=== PATIENT | female | born 1975 | race Caucasian/White ===

== ENCOUNTER 2022-02-23 09:00 | Outpatient (RCR) | payer MEDICAID, SELFPAY ==
--- OUTSIDE RECORDS SUMMARY | 2022-02-10 14:48 | XMS_ITS | Continuity of Care Document ---
:1975 Author Care Team Providers Name Role Phone PCP, UNASSIGNED Primary Care Physician Unavailable LIYA Goodwin Attending Physician Allergies, Adverse Reactions, Alerts No known allergies Social History Smoking Status Unknown if ever smoked Additional Data Assigned Sex Female Problems Active Problems Medical Problem Onset Date Status Cervical cancer, FIGO stage IIIA 2020 Active Medications Medication Status Dose Units Route Directions Qty Days Start End Ins tructions Date Date Dexamethasone Active 8 MG PO Daily X 3 06 January S TART DAY Days , AFTER CHEMO 2021 2:41pm Ferrous Active 325 MG PO Daily 100 Sulfate Loperamide Hcl Active 2 MG PO as needed (Imodium) 2 Mg CAP Lorazepam Active 0.5-1 MG PO Every 4 30 December Hours as , needed 2021 2:42pm Naproxen Active 220 MG PO Twice A Day 08 February not currently Sodium (Aleve) , using as of 220 Mg TAB 202102/07/22 12:11p m Omeprazole Active 20 MG PO Daily January 21, 2022 2:41pm Ondansetron Active 8 MG PO Every 8 24 January Hcl Hours as , needed 2021 2:41pm Prochlorperazi Active 10 MG PO Every 4-6 24 January PRN ne Maleate Hours as , Nausea /vomiti needed 2021 ng 2:41pm Naproxen Discontinu 220 MG PO Twice A Day January Sodium (Aleve) ed , 220 Mg TAB 2021 12:11 pm Relevant Diagnostic Tests and/or Laboratory Data Laboratory Results Test Date/Time Result Interpretation Reference Result Comment Performing Range Site White Blood February 07, 8.02 5.00-10.00 [facility] Count 2021 [address] [facility] 8:54am [facility] [address] Red Blood Count February 07, 4.18 3.90-5.03 [facility] 2021 [address] [facility] 8:54am [place] [address] Hemoglobin February 07, 13.4 12.0-15.5 [facility] 2021 1999 [facility] 8:54am [place] [address] Hematocrit February 07, 38.9 34.9-44.5 [facility] 2021 1999 [facility] 8:54am [place] [address] Mean February 07, 93 82-98 [facility] Corpuscular 2021 1999 [facility] Volume 8:54am [place] [address] Mean February 07, 32 27-34 [facility] Corpuscular 2021 1999 [facility] Hemoglobin 8:54am [facility] [address] Mean February 07, 34 32-36 [facility] Corpuscular 2021 1999 [facility] Hemoglobin 8:54am [facility] [address] Concent Platelet Count February 07, 141 150-450 [facility] 2021 [address] [facility] 8:54am [place] [address] RDW Coefficient February 07, 12.3 11.5-15.3 [facility] of Variation 2021 1999 [facility] 8:54am [place] [address] Neutrophils (%) February 07, 87.4 50.0-70.0 [facility] (Auto) 2021 1999 [facility] 8:54am [place] [address] Lymphocytes (%) February 07, 4.0 25.0-45.0 [facility] (Auto) 2021 [address] [facility] 8:54am [place] [address] Monocytes (%) February 07, 6.0 0.00-11.0 [facility] (Auto) 2021 [address] [facility] 8:54am [place] [address] Eosinophils (%) February 07, 2.0 0.0-7.0 [facility] (Auto) 2021 [address] [facility] 8:54am [place] [address] Basophils (%) February 07, 0.0 0.0-3.0 [facility] (Auto) 2021 [address] [facility] 8:54am [place] [address] Immature February 07, 0.6 [facility] Granulocyte % 2021 1999 [facility] (Auto) 8:54am [place] [address] Neutrophils # February 07, 7.01 1.70-7.00 [facility] (Auto) 2021 1999 [facility] 8:54am [facility] [address] Lymphocytes # February 07, 0.32 0.90-2.90 [facility] (Auto) 2021 [address] [facility] 8:54am [place] [address] Monocytes # February 07, 0.48 0.30-0.90 [facility] (Auto) 2021 [address] [facility] 8:54am [facility] [address] Eosinophils # February 07, 0.16 0.00-0.50 [facility] (Auto) 2021 [address] [facility] 8:54am [facility] [address] Basophils # February 07, 0.00 0.00-0.20 [facility] (Auto) 2021 [address] [facility] 8:54am [facility] [address] Immature February 07, 0.05 [facility] Granulocyte # 2021 1999 [facility] ([facility]) 8:54am [facility] [address] Random Glucose February 07, 88 60-115 [facility] 2021 [address] [facility] 8:54am [facility] [address] Blood Urea February 07, 16 5-24 [facility] Nitrogen 2021 [address] [facility] 8:54am [facility] [address] Creatinine February 07, 1.0 0.5-1.5 [facility] 2021 [address] [facility] 8:54am [facility] [address] Estimated February 07, 55.0230 [facility] Creatinine 2021 5 1999 [facility] Clearance 8:54am [facility] [address] Sodium Level February 07, 133 135-149 [facility] 2021 [address] [facility] 8:54am [facility] [address] Potassium Level February 07, 4.2 3.6-5.1 [facility] 2021 [address] [facility] 8:54am [facility] [address] Chloride Level February 07, 94 96-114 [facility] 2021 [address] [facility] 8:54am [facility] [address] Carbon Dioxide February 07, 34 20-32 [facility] Level 2021 [address] [facility] 8:54am [facility] [address] Calcium Level February 07, 8.5 8.4-10.6 [facility] 2021 [address] [facility] 8:54am [facility] [address] Magnesium Level February 07, 1.7 1.5-2.6 [facility] 2021 [address] [facility] 8:54am [facility] [address] Total Protein February 07, 6.0 6.0-8.[address] [facility] 2021 Eltrombopag, a 1999 [facility] 8:54am bone [place] [address] stimulant used to treat thrombocytopenia and aplastic anemia, interferes with this measurement of total protein. A 5% bias has been observed. Albumin February 07, 3.5 3.3-5.0 [facility] 2021 [address] [facility] 8:54am [facility] [address] Total Bilirubin February 07, 0.4 0.1-1.5 [facility] 2021 [address] [facility] 8:54am [facility] [address] Aspartate Amino February 07, 12-35 [facility] Transf 2021 1999 [facility] (AST/SGOT) 8:54am [facility] [place] [address] Alanine February 07 4-35 [facility] Aminotransferas 2021 1999 [facility] e (ALT/SGPT) 8:54am [place] [address] Alkaline February 07, 40-150 [facility] Phosphatase 2021 [address] [facility] 8:54am [facility] [address] Insurance Providers Guarantor Daphne Lennon Address [address] [facility] [address] Contact Info. Home Phone: Payer Policy Id Coverage Id Subscriber's Subscriber Id Effective E xpiration Name Date Date Medicaid [id number] Daphne Lennon Encounters Encounter Location(s) Arrival/Admit Date Discharge/Depart Date Provider(s) Registered [place] February 09, 2022 Usha Goodwin [facility] 6:56am [facility] TREATMENT TECHNICIAN-C Recent Diagnosis Onset Date Cervical cancer, FIGO stage IIIA Assessments Diagnosis Onset Date Resolution Status Cervical cancer, FIGO Active stage IIIA
[2022-02-22 10:04] VITALS: BP 107/76; PULSE 94; RESP 16; TEMP 36.2; O2SAT 99
[2022-02-22] MEDS: dexAMETHasone 10 MG in 0.9 % SODIUM CHLORIDE 100 ml 100 ML 404 MG IVPB (11:54)
[2022-02-22] MEDS: PALONOSETRON 0.25 MG/5 ML inj IV (11:59)
[2022-02-22] MEDS: FOSAPREPITANT 150 MG inj 150 MG in 0.9 % SODIUM CHLORIDE 250 ml 250 ML 510 MG IVPB (12:35)
--- NOTE | 2022-02-22 15:28 | ONC.NURNOTE ---
Patients Mag is 1.3. per Agnes BEARD Normal Saline !L with @ gm Mag over 2 hrs today and tomorrow. Pt states having difficult time taking Mag on a empty stomach . states takes it about every other day. Enc to set a alarm to take it a hour before getting up for a meal in the am. stress the importance of taking it.
[2022-02-23 08:45] VITALS: BP 131/82; RESP 16; TEMP 36.2; O2SAT 100
--- NOTE | 2022-02-23 09:09 | ONC.NURNOTE ---
states loose stool x2 this am. Lomotil with good results. enc pt to call if increase loose stools. pt states set alarm for 5am and did take her Mag. this am. reviewed s/s dehydration.
== END 2022-02-24 23:59 | disposition home or self-care (01) ==
LOC: CCIC 09:00
PROVIDERS: Visit Provider Internal Medicine Hematology & Oncology
DX: C53.9 Malignant neoplasm of cervix uteri, unspecified (principal)
CPT/HCPCS: 96365; 96366; 96376; 96413; J1100; J1453; J2469; J3475; J7030; J7050; J7120; J9060

== ENCOUNTER 2022-03-25 09:15 | Outpatient (RCR) | payer MEDICAID, SELFPAY ==
[2022-03-01 10:32] VITALS: BP 117/69; PULSE 84; RESP 16; TEMP 36.3; O2SAT 99
[2022-03-01 10:36] LABS: Eosinophils Percent Auto 0.5 % (0.0-7.0); Hematocrit 32.8 % (33.0-51.0); Hemoglobin* 11.6 gm/dL (12.0-16.0); Immature Granulocytes Abs Auto 0.22 K/uL (0.00-0.30); Lymphocytes Percent Auto 5.9 % (20-44); Mean Corpuscular HGB Conc 35 gm/dL (32-36); Mean Corpuscular Hemoglobin 31 pg (26-34); Mean Corpuscular Volume 89 fL (80-100); Monocytes Percent Auto 12.2 % (0.0-11.0); Neutrophils Percent Auto 69.7 % (42.0-72.0); Platelet Count* 104 K/uL (140-440); RDW Coefficient of Variation % 11.8 % (11.5-15.5)
[2022-03-01 10:46] LABS: White Blood Count* 1.88 K/uL (4.50-11.00)
[2022-03-01 10:47] LABS: Slide Review Reflex Yes
[2022-03-01 11:00] LABS: Albumin* 3.8 g/dL (3.3-5.0); Chloride* 97 mmol/L (96-114); Potassium* 3.9 mmol/L (3.6-5.1); Sodium* 130 mmol/L (135-149)
[2022-03-01 11:02] LABS: Bilirubin Total* 0.4 mg/dL (0.1-1.5); Creatinine* 0.7 mg/dL (0.5-1.5); Estimated Glomerular Filt Rate 107.28
[2022-03-01 11:03] LABS: Alanine Aminotransferase* 29 U/L (4-35); Alkaline Phosphatase* 82 U/L (40-150); Aspartate Amino Transferase* 26 U/L (12-35); Blood Urea Nitrogen* 12 mg/dL (5-24); Calcium* 8.3 mg/dL (8.4-10.6); Carbon Dioxide* 32 mmol/L (20-32); Glucose* 104 mg/dL (60-115); Total Protein* 6.1 g/dL (6.0-8.3)
[2022-03-01 11:04] LABS: Magnesium* 1.1 mg/dL (1.5-2.6)
[2022-03-01] MEDS: dexAMETHasone 10 MG in 0.9 % SODIUM CHLORIDE 100 ml 100 ML 400 MG IVPB (13:26)
[2022-03-01] MEDS: PALONOSETRON 0.25 MG/5 ML inj IV (13:26)
[2022-03-01 14:58] LABS: Slide Review Acceptable Review (Acceptable)
[2022-03-02 09:07] VITALS: BP 109/81; PULSE 76; RESP 16; TEMP 36.1; O2SAT 98
[2022-03-02 09:27] LABS: Magnesium* 1.5 mg/dL (1.5-2.6)
--- NOTE | 2022-03-02 10:09 | PC.NURSE ---
Patient here for a magnesium blood draw and fluids with magnesium added to it. Mag was 1.5 today. Patient had taken 2 magnesium tablets yesterday and had some magnesium added to her fluids as well. Patient ended up having 3 bouts of diarrhea last evening. This was resolved with some Imodium. CLINICAL REVIEWER notified of this. Will advise patient to only take 1 tablet of magnesium daily and to return every Monday for 4 weeks to check labs and replace as needed. Patient will then see CLINICAL REVIEWER in 4 weeks. Order for PRN fluids was placed and patient verbally understood this plan.
[2022-03-02] MEDS: SODIUM CHLORIDE 0.9 % (FLUSH) 10 ML SYRINGE IVF (15:56)
--- NOTE | 2022-03-03 16:46 | ONC.NURNOTE ---
Authorization: User: Ban Kenney Avisbrayanmin Date: 01/21/22 10:35 Type: Eligibility Determination Note... Request received from [facility] for prior authorization of Cisplatin [id number], Aloxi [id number] and Emend [id number]. Patient carries [place] Medicaid as primary insurance. Per [facility] Fee Schedule no prior authorization is required for Cisplatin, Aloxi and Emend. Services are based on medical necessity.
[2022-03-08 09:49] LABS: Eosinophils Percent Auto 0.3 % (0.0-7.0); Hematocrit 31.2 % (33.0-51.0); Hemoglobin* 11.1 gm/dL (12.0-16.0); Immature Granulocytes Abs Auto 0.29 K/uL (0.00-0.30); Lymphocytes Percent Auto 2.6 % (20-44); Mean Corpuscular HGB Conc 36 gm/dL (32-36); Mean Corpuscular Hemoglobin 31 pg (26-34); Mean Corpuscular Volume 87 fL (80-100); Monocytes Percent Auto 8.7 % (0.0-11.0); Neutrophils Percent Auto 80.8 % (42.0-72.0); Platelet Count* 82 K/uL (140-440); RDW Coefficient of Variation % 12.1 % (11.5-15.5); Red Blood Count 3.57 m/uL (4.00-5.20)
[2022-03-08 09:55] LABS: Slide Review Reflex No
[2022-03-08 10:15] LABS: Chloride* 94 mmol/L (96-114)
[2022-03-08 10:16] LABS: Potassium* 3.1 mmol/L (3.6-5.1); Sodium* 129 mmol/L (135-149)
[2022-03-08 10:18] LABS: Creatinine* 0.8 mg/dL (0.5-1.5); Est. Creatinine Clearance* 68.76
[2022-03-08 10:19] LABS: Blood Urea Nitrogen* 11 mg/dL (5-24); Calcium* 8.3 mg/dL (8.4-10.6); Carbon Dioxide* 25 mmol/L (20-32); Glucose* 149 mg/dL (60-115)
--- NOTE | 2022-03-08 16:50 | ONC.NURNOTE ---
Called Patient at 1315 and left a message for her to call us re: her low labs. and that she needs to come in today for fluid and electrolytes.. after no call back called her at 1630. states unable to come in till 1500 tomorrow. consulted [facility]. Pt enc to come in this evening DIO. pt states no ride till 7-8pm. Pt states will come in when hubby home. instructed to go to med surg. House sup aware and Charge nurse aware. and ok. pt instructed to come in at ER entrance. ER notified.
[2022-03-08 17:46] VITALS: BP 112/77; PULSE 92; RESP 16; TEMP 36.7; O2SAT 97
--- NOTE | 2022-03-08 21:12 | PC.NURSE ---
Infusion complete. IV dc'd. Pt discharged.
--- NOTE | 2022-03-09 09:56 | ONC.NURNOTE ---
CALLED [facility] [phone] TO SEE IF THEY WOULD DO A BMP, MAG TODAY WHILE PT IS THERE.
--- NOTE | 2022-03-09 15:58 | ONC.NURNOTE ---
message left with pt phone asking her to call us and be seen 03/10 for asst and bmp. mag.
[2022-03-10 08:34] VITALS: BP 113/80; PULSE 100; RESP 16; TEMP 36.4; O2SAT 97
[2022-03-10 09:27] LABS: Chloride* 96 mmol/L (96-114)
[2022-03-10 09:28] LABS: Potassium* 3.4 mmol/L (3.6-5.1); Sodium* 128 mmol/L (135-149)
[2022-03-10 09:30] LABS: Creatinine* 0.7 mg/dL (0.5-1.5); Est. Creatinine Clearance* 78.58; Estimated Glomerular Filt Rate 107.28
[2022-03-10 09:31] LABS: Blood Urea Nitrogen* 8 mg/dL (5-24); Calcium* 8.8 mg/dL (8.4-10.6); Carbon Dioxide* 27 mmol/L (20-32); Glucose* 126 mg/dL (60-115); Magnesium* 1.2 mg/dL (1.5-2.6)
--- NOTE | 2022-03-10 14:30 | ONC.NURNOTE ---
Addendum entered by Lilly Rabago RN 03/10/22 14:51: Reviewed with Agnes Marlow APRN. Gave 4 gm MgSO4/20mEq KCl in 1 L NS in addition to 1L NS that infused while waiting for lab results. Pt unable to come back for f/u until next ; scheduled pt for labs Mon sussy 03/14 in hospital lab and infusion Tues 0900 03/15. Nsg to review 03/15 am with Agnes Marlow APRN. Original Note: Pt here today for lab recheck and IVF. VS orthostatic; she denies dizziness or increased fatigue. She has been at [facility] for brachytherapy yesterday, tomorrow and next Mon. Na 128, K 3.4, Mg 1.2. She is taking 400mg Mg Oxide daily and 10 meQ Kcl daily. See addendum.
[2022-03-14 15:00] VITALS: BP 124/72; PULSE 127; RESP 14; TEMP 36.1; O2SAT 100
[2022-03-14 15:05] VITALS: BP 105/65; PULSE 146
[2022-03-14 15:16] LABS: Albumin* 3.9 g/dL (3.3-5.0); Chloride* 98 mmol/L (96-114)
[2022-03-14 15:17] LABS: Potassium* 4.5 mmol/L (3.6-5.1); Sodium* 133 mmol/L (135-149)
[2022-03-14] MEDS: SODIUM CHLORIDE 0.9 % (FLUSH) 10 ML SYRINGE IVF (15:17)
[2022-03-14 15:19] LABS: Alkaline Phosphatase* 69 U/L (40-150); Aspartate Amino Transferase* 29 U/L (12-35); Bilirubin Total* 0.6 mg/dL (0.1-1.5); Blood Urea Nitrogen* 11 mg/dL (5-24); Carbon Dioxide* 28 mmol/L (20-32); Creatinine* 0.7 mg/dL (0.5-1.5); Est. Creatinine Clearance* 78.58; Estimated Glomerular Filt Rate 107 ml/min; Total Protein* 6.4 g/dL (6.0-8.3)
[2022-03-14 15:20] LABS: Alanine Aminotransferase* 31 U/L (4-35); Calcium* 8.9 mg/dL (8.4-10.6); Glucose* 126 mg/dL (60-115)
--- NOTE | 2022-03-14 16:12 | ONC.NURNOTE ---
states cramps in feet and rt finger. occio. headache. chills. no fever. rachael liq. no appetite. states feels full. denies nausea emesis or constipation. awaiting mag. results. 1000cc NS cith 4gm mag currently running ove 2 hrs. orthostatics before infusion. sitting. 124/72-127. standing 105/65-146.
[2022-03-14 16:22] LABS: Magnesium* 1.2 mg/dL (1.5-2.6)
[2022-03-14 17:40] VITALS: BP 106/60; PULSE 104; RESP 16; TEMP 36.8; O2SAT 99
--- NOTE | 2022-03-14 18:28 | PC.NURSE ---
Patient to 243 and IV fluids infused without difficulty. SL discontinued with tip intact. Patient departed with all personal belongings.
[2022-03-15 13:33] LABS: Chloride* 100 mmol/L (96-114); Sodium* 132 mmol/L (135-149)
[2022-03-15 13:36] LABS: Carbon Dioxide* 27 mmol/L (20-32); Creatinine* 0.7 mg/dL (0.5-1.5); Est. Creatinine Clearance* 78.58; Estimated Glomerular Filt Rate 107 ml/min
[2022-03-15 13:37] LABS: Blood Urea Nitrogen* 9 mg/dL (5-24); Calcium* 8.6 mg/dL (8.4-10.6); Glucose* 103 mg/dL (60-115); Magnesium* 1.8 mg/dL (1.5-2.6)
[2022-03-15] MEDS: SODIUM CHLORIDE 0.9 % (FLUSH) 10 ML SYRINGE IVF (14:00)
[2022-03-15 15:16] VITALS: BP 115/77; BP 117/76; PULSE 91; PULSE 94; RESP 16; TEMP 37.1; O2SAT 100
--- NOTE | 2022-03-15 16:01 | ONC.NURNOTE ---
Patient to come back for fluids prior to the weekend. She wants to look at her schedule for Monday. She will call the office with what time she can be here on Monday for fluids. Per GEOMETRY TUTOR, no labs needed.
[2022-03-18 10:09] VITALS: BP 116/73; PULSE 106; RESP 16; TEMP 36.8; O2SAT 97
[2022-03-18 10:20] LABS: Chloride* 104 mmol/L (96-114); Sodium* 134 mmol/L (135-149)
[2022-03-18 10:21] LABS: Potassium* 4.1 mmol/L (3.6-5.1)
[2022-03-18 10:23] LABS: Creatinine* 0.8 mg/dL (0.5-1.5); Est. Creatinine Clearance* 68.76; Estimated Glomerular Filt Rate 91 ml/min
[2022-03-18 10:24] LABS: Blood Urea Nitrogen* 6 mg/dL (5-24); Calcium* 8.9 mg/dL (8.4-10.6); Carbon Dioxide* 25 mmol/L (20-32); Glucose* 101 mg/dL (60-115); Magnesium* 1.6 mg/dL (1.5-2.6)
[2022-03-22 09:21] VITALS: BP 121/73; PULSE 108; RESP 16; TEMP 36.3; O2SAT 99
[2022-03-22 09:23] VITALS: BP 109/74; PULSE 112; RESP 16; O2SAT 100
[2022-03-22 10:20] LABS: Chloride* 103 mmol/L (96-114); Potassium* 4.5 mmol/L (3.6-5.1); Sodium* 135 mmol/L (135-149)
[2022-03-22 10:23] LABS: Blood Urea Nitrogen* 13 mg/dL (5-24); Carbon Dioxide* 25 mmol/L (20-32); Creatinine* 0.9 mg/dL (0.5-1.5); Est. Creatinine Clearance* 61.12; Estimated Glomerular Filt Rate 79 ml/min
[2022-03-22 10:24] LABS: Calcium* 8.7 mg/dL (8.4-10.6); Glucose* 121 mg/dL (60-115); Magnesium* 1.5 mg/dL (1.5-2.6)
[2022-03-25 09:28] VITALS: BP 101/68; PULSE 93; RESP 16; TEMP 36.2; O2SAT 97
[2022-03-25 09:31] VITALS: BP 110/77; PULSE 101; PULSE 97
[2022-03-25 09:35] LABS: Chloride* 104 mmol/L (96-114); Potassium* 4.8 mmol/L (3.6-5.1); Sodium* 133 mmol/L (135-149)
[2022-03-25 09:38] LABS: Blood Urea Nitrogen* 8 mg/dL (5-24); Carbon Dioxide* 24 mmol/L (20-32); Creatinine* 0.7 mg/dL (0.5-1.5); Est. Creatinine Clearance* 78.58; Estimated Glomerular Filt Rate 107 ml/min; Glucose* 108 mg/dL (60-115); Magnesium* 1.6 mg/dL (1.5-2.6)
== END 2022-03-27 23:59 | disposition home or self-care (01) ==
LOC: CCIC 09:15
PROVIDERS: Clinical Nurse Specialist; Visit Provider Internal Medicine Hematology & Oncology
DX: C53.9 Malignant neoplasm of cervix uteri, unspecified (principal)
CPT/HCPCS: 36415; 80048; 80053; 83735; 83785; 85025; 96365; 96366; 96376; 96413; 99211; 99212; 99214; J1100; J1453; J2469; J3475; J3480; J7030; J7050; J7120; J9060

== ENCOUNTER 2022-09-01 13:00 | Outpatient (RCR) | payer MEDICAID, SELFPAY ==
[2022-03-28 10:05] LABS: Eosinophils Percent Auto 0.7 % (0.0-7.0); Hematocrit 20.1 % (33.0-51.0); Immature Granulocytes Abs Auto 0.05 K/uL (0.00-0.30); Lymphocytes Percent Auto 47.9 % (20-44); Mean Corpuscular HGB Conc 34 gm/dL (32-36); Mean Corpuscular Hemoglobin 33 pg (26-34); Mean Corpuscular Volume 97 fL (80-100); Monocytes Percent Auto 14.1 % (0.0-11.0); Neutrophils Percent Auto 33.8 % (42.0-72.0); Platelet Count* 131 K/uL (140-440); RDW Coefficient of Variation % 19.8 % (11.5-15.5); Red Blood Count 2.08 m/uL (4.00-5.20)
[2022-03-28 10:20] LABS: Albumin* 4.1 g/dL (3.3-5.0); Chloride* 102 mmol/L (96-114); Potassium* 3.7 mmol/L (3.6-5.1); Sodium* 137 mmol/L (135-149)
[2022-03-28 10:22] LABS: Bilirubin Total* 0.2 mg/dL (0.1-1.5); Carbon Dioxide* 27 mmol/L (20-32); Creatinine* 0.9 mg/dL (0.5-1.5); Estimated Glomerular Filt Rate 79 ml/min
[2022-03-28 10:23] LABS: Alanine Aminotransferase* 25 U/L (4-35); Alkaline Phosphatase* 66 U/L (40-150); Aspartate Amino Transferase* 33 U/L (12-35); Blood Urea Nitrogen* 8 mg/dL (5-24); Calcium* 9.3 mg/dL (8.4-10.6); Glucose* 132 mg/dL (60-115); Total Protein* 6.7 g/dL (6.0-8.3)
[2022-03-28 10:46] LABS: Hemoglobin* 6.8 gm/dL (12.0-16.0); White Blood Count* 1.42 K/uL (4.50-11.00)
[2022-03-28 11:05] LABS: Slide Review Acceptable Review (Acceptable); Slide Review Reflex Yes
[2022-03-29 09:09] VITALS: BP 99/64; PULSE 89; RESP 20; TEMP 36.8; O2SAT 100
[2022-03-29 09:27] VITALS: BP 98/66; PULSE 97; RESP 20; TEMP 36.9; O2SAT 100
[2022-03-29 11:15] VITALS: BP 112/76; PULSE 86; RESP 18; TEMP 36.8; O2SAT 100
[2022-03-29 11:45] VITALS: BP 111/73; PULSE 86; RESP 20; TEMP 36.9; O2SAT 100
[2022-03-29 12:26] VITALS: BP 100/67; PULSE 81; RESP 18; TEMP 36.7; O2SAT 99
[2022-04-04 08:46] VITALS: BP 103/68; PULSE 92; RESP 16; TEMP 36.8; O2SAT 97
[2022-04-04 08:47] LABS: Basophils Percent Auto 0.4 % (0.0-3.0); Eosinophils Percent Auto 0.4 % (0.0-7.0); Hematocrit 28.4 % (33.0-51.0); Hemoglobin* 9.4 gm/dL (12.0-16.0); Immature Granulocytes Abs Auto 0.06 K/uL (0.00-0.30); Lymphocytes Percent Auto 45.1 % (20-44); Mean Corpuscular HGB Conc 33 gm/dL (32-36); Mean Corpuscular Hemoglobin 31 pg (26-34); Mean Corpuscular Volume 95 fL (80-100); Monocytes Percent Auto 19.2 % (0.0-11.0); Neutrophils Percent Auto 32.2 % (42.0-72.0); Platelet Count* 165 K/uL (140-440); RDW Coefficient of Variation % 18.6 % (11.5-15.5); Red Blood Count 2.99 m/uL (4.00-5.20); White Blood Count* 2.24 K/uL (4.50-11.00)
[2022-04-04 09:02] LABS: Magnesium* 1.7 mg/dL (1.5-2.6)
--- NOTE | 2022-04-04 09:13 | ONC.NURNOTE ---
Pt doing well today, VSS. Pt has no concerns, drinking fluids well. No fatigue or weakness. Hgb up to 9.4 from 6.8 last week. ANC up to 0.7 from 0.5 last week. Magnesium 1.7 today. Pt to return in one week for CBC. Pt verbalized understanding of plan of care.
[2022-04-04 13:41] LABS: Slide Review Reflex No
[2022-04-11 08:47] LABS: Basophils Percent Auto 0.3 % (0.0-3.0); Eosinophils Percent Auto 1.4 % (0.0-7.0); Hematocrit 28.3 % (33.0-51.0); Hemoglobin* 9.6 gm/dL (12.0-16.0); Immature Granulocytes Abs Auto 0.13 K/uL (0.00-0.30); Lymphocytes Percent Auto 24.5 % (20-44); Mean Corpuscular HGB Conc 34 gm/dL (32-36); Mean Corpuscular Hemoglobin 32 pg (26-34); Mean Corpuscular Volume 95 fL (80-100); Monocytes Percent Auto 9.1 % (0.0-11.0); Platelet Count* 193 K/uL (140-440); RDW Coefficient of Variation % 17.7 % (11.5-15.5); Red Blood Count 2.99 m/uL (4.00-5.20); White Blood Count* 3.51 K/uL (4.50-11.00)
[2022-04-11 08:56] LABS: Chloride* 105 mmol/L (96-114); Sodium* 138 mmol/L (135-149)
[2022-04-11 08:58] LABS: Slide Review Reflex No
[2022-04-11 08:59] LABS: Creatinine* 0.8 mg/dL (0.5-1.5); Estimated Glomerular Filt Rate 91 ml/min
[2022-04-11 09:00] LABS: Blood Urea Nitrogen* 8 mg/dL (5-24); Calcium* 9.3 mg/dL (8.4-10.6); Carbon Dioxide* 28 mmol/L (20-32); Glucose* 123 mg/dL (60-115); Magnesium* 1.7 mg/dL (1.5-2.6)
[2022-05-12 10:29] LABS: Basophils Absolute Auto 0.01 K/uL (0.00-0.30); Basophils Percent Auto 0.2 % (0.0-3.0); Eosinophils Absolute Auto 0.18 K/uL (0.00-0.50); Eosinophils Percent Auto 3.9 % (0.0-7.0); Hematocrit 31.2 % (33.0-51.0); Hemoglobin* 10.3 gm/dL (12.0-16.0); Immature Granulocytes Abs Auto 0.01 K/uL (0.00-0.30); Lymphocytes Percent Auto 16.2 % (20-44); Mean Corpuscular HGB Conc 33 gm/dL (32-36); Mean Corpuscular Hemoglobin 33 pg (26-34); Mean Corpuscular Volume 99 fL (80-100); Monocytes Percent Auto 5.6 % (0.0-11.0); Neutrophils Percent Auto 73.9 % (42.0-72.0); Platelet Count* 147 K/uL (140-440); RDW Coefficient of Variation % 14.4 % (11.5-15.5); Red Blood Count 3.16 m/uL (4.00-5.20); White Blood Count* 4.62 K/uL (4.50-11.00)
[2022-05-12 10:30] LABS: Slide Review Reflex No
[2022-05-12 10:40] LABS: Chloride* 105 mmol/L (96-114); Potassium* 3.9 mmol/L (3.6-5.1); Sodium* 141 mmol/L (135-149)
[2022-05-12 10:43] LABS: Blood Urea Nitrogen* 13 mg/dL (5-24); Carbon Dioxide* 27 mmol/L (20-32); Creatinine* 0.9 mg/dL (0.5-1.5); Estimated Glomerular Filt Rate 79 ml/min; Glucose* 130 mg/dL (60-115)
[2022-05-12 10:44] LABS: Calcium* 9.6 mg/dL (8.4-10.6); Magnesium* 1.7 mg/dL (1.5-2.6)
--- NOTE | 2022-05-13 12:58 | ONC.NURNOTE ---
Pt called with lab results after labs reviewed by Agnes Krishnamurthy APRN.
[2022-09-01 12:21] LABS: Basophils Percent Auto 0.3 % (0.0-3.0); Eosinophils Percent Auto 2.9 % (0.0-7.0); Hematocrit 35.2 % (33.0-51.0); Hemoglobin* 11.9 gm/dL (12.0-16.0); Lymphocytes Percent Auto 23.6 % (20-44); Mean Corpuscular HGB Conc 34 gm/dL (32-36); Mean Corpuscular Hemoglobin 31 pg (26-34); Mean Corpuscular Volume 92 fL (80-100); Monocytes Percent Auto 7.1 % (0.0-11.0); Neutrophils Percent Auto 66.1 % (42.0-72.0); Platelet Count* 168 K/uL (140-440); RDW Coefficient of Variation % 13.1 % (11.5-15.5); Red Blood Count 3.82 m/uL (4.00-5.20); White Blood Count* 3.81 K/uL (4.50-11.00)
[2022-09-01 12:22] LABS: Slide Review Reflex No
[2022-09-01 12:38] LABS: Albumin* 4.6 g/dL (3.3-5.0); Chloride* 108 mmol/L (96-114)
[2022-09-01 12:39] LABS: Potassium* 4.6 mmol/L (3.6-5.1); Sodium* 140 mmol/L (135-149)
[2022-09-01 12:41] LABS: Alanine Aminotransferase* 23 U/L (4-35); Alkaline Phosphatase* 71 U/L (40-150); Aspartate Amino Transferase* 27 U/L (12-35); Bilirubin Total* 0.8 mg/dL (0.1-1.5); Blood Urea Nitrogen* 19 mg/dL (5-24); Carbon Dioxide* 21 mmol/L (20-32); Creatinine* 0.9 mg/dL (0.5-1.5); Estimated Glomerular Filt Rate 79 ml/min; Total Protein* 7.4 g/dL (6.0-8.3)
[2022-09-01 12:42] LABS: Calcium* 9.7 mg/dL (8.4-10.6); Glucose* 105 mg/dL (60-115); Magnesium* 1.9 mg/dL (1.5-2.6)
== END 2022-09-24 23:59 | disposition home or self-care (01) ==
LOC: CCIC 13:00
PROVIDERS: Clinical Nurse Specialist; Internal Medicine Hematology & Oncology; Nurse Practitioner Family; Visit Provider Physician Assistant
DX: C53.9 Malignant neoplasm of cervix uteri, unspecified (principal); N94.10 Unspecified dyspareunia
CPT/HCPCS: 36415; 36430; 80048; 80053; 83735; 85025; 86850; 86900; 86901; 86922; 99212; 99213; 99214; 99215; P9016

== ENCOUNTER 2022-09-08 13:12 | Outpatient (CLI) | payer MEDICAID, SELFPAY ==
--- NOTE | 2022-09-08 14:00 | CRLHL7_ITS ---
For Patients: As a result of the Century Cures Act, medical imaging exams and procedure reports are released immediately into your electronic medical record. You may view this report before your referring provider. If you have questions, please contact your health care provider. Indication: STAGE 3 CERVICAL SQUAMOUS CELL CARCINOMA Technique: Postcontrast CT chest, abdomen and pelvis. Oral water. 85 cc Isovue 370 intravenous contrast. Please note that all CT scans at this facility use dose modulation, iterative reconstruction, and/or weight-based dosing when appropriate to reduce radiation dose to as low as reasonably achievable. Comparison: CT-PET 05/31/2022 Findings: In the chest, there is a stable right upper nodule measuring 4 millimeters, 11/19. Stable left thyroid lobe nodule measuring 1.9 cm. No enlarged mediastinal, hilar or axillary lymph nodes. Normal breast tissue. No infiltrate, edema, pneumothorax or pleural effusion. No intrinsic osseous lesion or fracture. In the abdomen, hepatic steatosis is noted. There is no intrahepatic mass. Incidental fold at the gallbladder fundus. No calcified gallstones or biliary obstruction. Normal pancreas. The spleen is normal. Normal adrenal glands. Normal kidneys. No retroperitoneal or mesenteric adenopathy. In the pelvis, there is no bowel obstruction or free air. Normal appendix. Uterine contour is similar. Unremarkable ovaries. Trace pelvic free fluid noted. Post treatment changes of chemo radiation and brachytherapy noted to the uterine cervical region. Similar soft tissue about 1 of the left-sided brachytherapy beads. Stable inguinal lymph nodes. No enlarged pelvic lymph nodes. Bladder normal. Osseous structures normal. Impression: Stable post therapy changes to the uterine cervical region with trace amount of pelvic free fluid and stable subcentimeter lymph nodes. Stable 4 millimeter pulmonary nodule within the right upper lobe. Stable previously biopsied left thyroid lobe nodule. No intrahepatic mass. No intrathoracic or intra-abdominal adenopathy. Please note that all CT scans at this facility use dose modulation, iterative reconstruction, and/or weight-based dosing when appropriate to reduce radiation dose to as low as reasonably achievable. Dictated by Eduardo Dawn MD @ 09/09/2022 3:13:52 PM (Electronically Signed)
== END 2022-09-08 13:13 | disposition home or self-care (01) ==
LOC: CT 13:13
PROVIDERS: Visit Provider Physician Assistant
DX: C53.9 Malignant neoplasm of cervix uteri, unspecified (principal); R91.1 Solitary pulmonary nodule; E04.1 Nontoxic single thyroid nodule
CPT/HCPCS: 71260; 74177; Q9967

== ENCOUNTER 2022-12-14 13:00 | Outpatient (CLI) | payer MEDICAID, SELFPAY ==
--- NOTE | 2022-12-14 13:00 | CRLHL7_ITS ---
For Patients: As a result of the Century Cures Act, medical imaging exams and procedure reports are released immediately into your electronic medical record. You may view this report before your referring provider. If you have questions, please contact your health care provider. Indication: MALIGNANT NEOPLASM OF CERVIX Technique: Postcontrast CT abdomen and pelvis. 95 cc Isovue 370 intravenous contrast. Please note that all CT scans at this facility use dose modulation, iterative reconstruction, and/or weight-based dosing when appropriate to reduce radiation dose to as low as reasonably achievable. Comparison: 09/08/2022 Findings: Lung bases are clear. There is no intrahepatic mass. The gallbladder is normal. No biliary obstruction. Normal pancreas. The spleen is normal. Normal adrenal glands. Kidneys are normal. No hiatal hernia. Stomach is normal. Normal duodenum and jejunum. Normal ileum. No bowel obstruction or free air. Post therapy changes to the cervix noted, as before, with ill-defined areas of decreased density in a small amount of endocervical fluid. Mild adjacent curvilinear densities in the surrounding fat. Trace pelvic free fluid. No abscess. No enlarged lymph nodes. No fracture. Impression: Stable post therapy changes to the cervix. Similar trace pelvic free fluid and subcentimeter pelvic lymph nodes. No metastatic disease. Please note that all CT scans at this facility use dose modulation, iterative reconstruction, and/or weight-based dosing when appropriate to reduce radiation dose to as low as reasonably achievable. Dictated by Eduardo Dawn MD @ 12/15/2022 1:12:42 PM (Electronically Signed)
== END 2022-12-14 13:01 | disposition home or self-care (01) ==
LOC: CT 13:02
PROVIDERS: Visit Provider Nurse Practitioner
DX: C53.8 Malignant neoplasm of overlapping sites of cervix uteri (principal)
CPT/HCPCS: 74177; Q9967

== ENCOUNTER 2023-03-22 08:00 | Outpatient (CLI) | payer MEDICAID, SELFPAY ==
--- NOTE | 2023-03-22 08:00 | CRLHL7_ITS ---
For Patients: As a result of the Century Cures Act, medical imaging exams and procedure reports are released immediately into your electronic medical record. You may view this report before your referring provider. If you have questions, please contact your health care provider. Indication: malignant neoplasm of cervix Technique: Postcontrast CT abdomen and pelvis. 85 cc Isovue 370 intravenous contrast. Please note that all CT scans at this facility use dose modulation, iterative reconstruction, and/or weight-based dosing when appropriate to reduce radiation dose to as low as reasonably achievable. Comparison: 12/14/2022, 09/08/2022, 05/31/2022 Findings: Mild atelectasis is present within both lung bases. No pleural effusion. There is no free intraperitoneal air. Visualized breast parenchyma appears normal. There is no intrahepatic mass. The gallbladder is within normal limits. Normal spleen. The adrenal glands are normal. No solid renal mass or hydronephrosis. Normal pancreas. The bladder is normal. Posttherapy changes are present to the cervix. Mild right posterior pelvic free fluid is again noted. No bowel obstruction. Several small subcentimeter pelvic sidewall lymph nodes are similar. There is no compression fracture. Mild facet degeneration lower lumbar spine. Hypertrophic changes to the greater trochanters. Impression: No significant changes compared to the prior examination with stable subcentimeter pelvic sidewall lymph nodes and mild right posterior pelvic free fluid. Please note that all CT scans at this facility use dose modulation, iterative reconstruction, and/or weight-based dosing when appropriate to reduce radiation dose to as low as reasonably achievable. Dictated by Eduardo Dawn MD @ 03/22/2023 10:40:42 AM (Electronically Signed)
== END 2023-03-22 08:01 | disposition home or self-care (01) ==
PROVIDERS: Visit Provider Radiology Radiation Oncology
DX: C53.9 Malignant neoplasm of cervix uteri, unspecified (principal)
CPT/HCPCS: 74177; Q9967

== ENCOUNTER 2023-07-24 08:54 | Outpatient (CLI) | payer MEDICAID, SELFPAY ==
--- NOTE | 2023-07-24 09:00 | CRLHL7_ITS ---
For Patients: As a result of the Century Cures Act, medical imaging exams and procedure reports are released immediately into your electronic medical record. You may view this report before your referring provider. If you have questions, please contact your health care provider. INDICATION: Follow-up cervical cancer. COMPARISON: 03/02/2023. TECHNIQUE: CT of the abdomen and pelvis with IV contrast. 84 cc of Isovue-370 administered intravenously. FINDINGS: Limited examination of the lung bases reveals posterior nonspecific mild ground-glass, likely due to imaging technique and supine position. No pleural effusion. The liver is noncirrhotic in morphology. Patent portal and hepatic veins. No suspicious liver mass. The spleen is normal in appearance. No gallbladder distention. Pancreas is unremarkable in appearance. Fiducials are seen presumably for radiation therapy in the region of the cervix. The previously seen cervical mass is difficult to visualize. Stranding with the adjacent soft tissues is redemonstrated, and trace amount of free fluid in the right cul-de-sac. Stable, mildly prominent subcentimeter left iliac lymph nodes measuring up to 5 mm on image 133 series 2, not pathologically enlarged. No suspicious adnexal mass lesion. No aggressive-appearing osseous lesion. No abdominal aortic aneurysm. Proximal visceral vessels are patent. The kidneys enhance symmetrically without hydronephrosis. No ureterectasis. Urinary bladder appears unremarkable. IMPRESSION: Stable examination, without a discrete mass seen in the cervix, trace amount of free fluid in the pelvis, mostly right posterior cul-de-sac, and stable mildly prominent but non-pathologically enlarged right external iliac lymph nodes. Please note that all CT scans at this facility use dose modulation, iterative reconstruction, and/or weight-based dosing when appropriate to reduce radiation dose to as low as reasonably achievable. Dictated by Justyn Bronson MD @ 07/26/2023 2:52:15 PM (Electronically Signed)
== END 2023-07-24 08:55 | disposition home or self-care (01) ==
PROVIDERS: Visit Provider Nurse Practitioner
DX: C53.8 Malignant neoplasm of overlapping sites of cervix uteri (principal)
CPT/HCPCS: 74177; Q9967

== ENCOUNTER 2024-04-01 07:36 | Outpatient (CLI) | payer MEDICAID, SELFPAY ==
--- NOTE | 2024-04-01 08:00 | CRLHL7_ITS ---
For Patients: As a result of the Century Cures Act, medical imaging exams and procedure reports are released immediately into your electronic medical record. You may view this report before your referring provider. If you have questions, please contact your health care provider. Indication: Malignant neoplasm of cervix multiple site Technique: CT Abdomen/Pelvis W/ ISOVUE 370 Please note that all CT scans at this facility use dose modulation, iterative reconstruction, and/or weight-based dosing when appropriate to reduce radiation dose to as low as reasonably achievable. Comparison: 07/24/2023 Findings: Lung bases are clear. No intrahepatic mass. Gallbladder normal. Spleen unremarkable. Normal pancreas. Adrenal glands and kidneys are within normal limits. Normal ureters. No adenopathy in the retroperitoneum or upper abdomen. Uterus appears similar. Mild pelvic free fluid noted. Radiotherapy seeds again noted. No bowel obstruction. No free air. No abscess. Ovaries appears similar. No enlarged lymph nodes. Degenerative facet arthropathy L3-4 and L4-5. No vertebral body compression fracture. Spurring at both hip joints. Enthesopathy at the right greater trochanter. Impression: Stable appearance of the pelvic soft tissues. No enlarged lymph nodes present. Please note that all CT scans at this facility use dose modulation, iterative reconstruction, and/or weight-based dosing when appropriate to reduce radiation dose to as low as reasonably achievable. Dictated by Eduardo Dawn MD @ 04/01/2024 11:46:04 AM (Electronically Signed)
== END 2024-04-01 07:37 | disposition home or self-care (01) ==
PROVIDERS: Visit Provider Nurse Practitioner
DX: C53.8 Malignant neoplasm of overlapping sites of cervix uteri (principal)
CPT/HCPCS: 74177; Q9967

== ENCOUNTER 2025-04-14 09:56 | Outpatient (CLI) | payer MEDICAID, SELFPAY ==
--- NOTE | 2025-04-14 10:00 | CRLHL7_ITS ---
For Patients: As a result of the Century Cures Act, medical imaging exams and procedure reports are released immediately into your electronic medical record. You may view this report before your referring provider. If you have questions, please contact your health care provider. INDICATION: Cervical cancer, post treatment. Follow-up. TECHNIQUE: CT chest, abdomen, and pelvis acquired with 85 mL Isovue 370 IV contrast. COMPARISON: Multiple priors, most recent CT abdomen/pelvis dated 04/01/2024. FINDINGS: CHEST: Lungs and pleura: Stable 0.3 cm pulmonary nodule in the right upper lobe (series 3, image 22). Heart and vessels: No cardiomegaly, no pericardial effusion. Thyroid and lower neck: Stable multiple left thyroid nodules. Mediastinum/vanessa: No lymphadenopathy. Chest wall: No axillary lymphadenopathy. ABDOMEN/PELVIS: Liver: No suspicious focal hepatic lesion. Gallbladder and bile ducts: Unremarkable. Pancreas: Unremarkable. Spleen: Unremarkable. Adrenal glands: Unremarkable. Kidneys: Kidneys enhance symmetrically, without hydronephrosis. Retroperitoneum: No lymphadenopathy. Bowel and mesentery: Bowel is not obstructed. No significant ascites, no pneumoperitoneum. Normal appendix. Bladder: Stable mild circumferential urinary bladder wall thickening, may be secondary to posttreatment changes. Reproductive organs: Unremarkable appearance of the uterus and bilateral ovaries. Stable appearance of radiation seeds versus fiduciary markers in the region of the cervix. No evidence of local recurrence. Trace pelvic free fluid, similar to prior study, may be physiologic. Pelvic lymph nodes: No lymphadenopathy. Vessels: Unremarkable. Abdominal wall: No acute abdominal wall abnormality. Bones: Multilevel degenerative changes of the spine. No suspicious/aggressive focal osseous lesion. IMPRESSION: 1. Stable appearance of post treatment changes in the region of the cervix. No evidence of local recurrence or metastatic disease. 2. Stable additional incidental findings as above. Please note that all CT scans at this facility use dose modulation, iterative reconstruction, and/or weight-based dosing when appropriate to reduce radiation dose to as low as reasonably achievable. Dictated by Mannie Schulz MD @ 04/15/2025 3:10:06 PM (Electronically Signed)
== END 2025-04-14 09:57 | disposition home or self-care (01) ==
LOC: CT 09:57
PROVIDERS: Visit Provider Radiology Radiation Oncology
DX: C53.9 Malignant neoplasm of cervix uteri, unspecified (principal)
CPT/HCPCS: 71260; 74177; Q9967